=== PATIENT | female | born 1980 | race Caucasian/White ===

== ENCOUNTER 2016-09-08 10:48 | Observation (INO) | payer BC ==
[~2016-09-08] VITALS: Ht 170.2 cm; Wt 81.8 kg
[2016-09-08] MEDS ORDERED: BENADRYL25 MG PO (11:33)
[2016-09-08] MEDS ORDERED: PRENATAL 1+1)(P1 TAB PO (11:33)
[2016-09-08] MEDS ORDERED: PROBIOTIC1 EAC1 PO (11:34)
[2016-09-08 12:15] LABS: BASOPHIL % 0.3 %; EOSINOPHIL # 0.1 K/uL (0.0-0.5); EOSINOPHIL % 0.7 %; HEMATOCRIT 34.1 % (33.0-46.0); HEMOGLOBIN 11.5 g/dL (11.0-15.0); IMMATURE GRANULOCYTE # 0.1 K/uL (0.0-0.3); IMMATURE GRANULOCYTE % 0.9 %; LYMPHOCYTE # 1.6 K/uL (0.8-4.0); LYMPHOCYTE % 13.3 %; MCH 28.8 pg (27.0-34.0); MCHC 33.7 gm/dL (32.0-36.5); MCV 85.3 fl (83.0-98.0); MONOCYTE # 0.7 K/uL (0.0-1.0); MONOCYTE % 6.1 %; MPV 10.6 fl (9.4-12.4); NEUTROPHIL # (ANC) 9.2 K/uL (1.8-7.8); NEUTROPHIL % 78.7 %; NRBC % 0 /100WBC (0-0.00); PLATELET COUNT 244 K/uL (150-450); RDW-CV 12.4 % (11.9-14.6); WBC 11.7 K/uL (4.0-11.0)
[2016-09-08 12:23] LABS: PROTIME 10.4 SECONDS (9.6-11.1); PTT 24 SECONDS (25-32)
[2016-09-08 12:30] LABS: ALBUMIN 2.5 gm/dL (3.5-5.0); ALK PHOS 132 IU/L (33-138); ALT 20 IU/L (12-78); ANION GAP 15.7 (10.0-19.0); AST 16 IU/L (10-40); BLOOD UREA NITROGEN 6 mg/dL (6-24); CALCIUM 8.5 mg/dL (8.5-10.5); CHLORIDE 110 mMol/L (96-110); CO2 21 mMol/L (22-32); CREATININE 0.5 mg/dL (0.5-1.1); ESTIMATED GFR (MDRD EQUATION) > 60; POTASSIUM 3.7 mMol/L (3.7-5.1); SODIUM 143 mMol/L (135-145); TOTAL BILIRUBIN 0.3 mg/dL (0.0-1.5); TOTAL PROTEIN 6.4 g/dL (6.0-8.4)
== END 2016-09-08 14:00 | disposition disaster alternative care site (69) ==
LOC: GOBS 10:48
PROVIDERS: ADMIT Obstetrics & Gynecology
DX: O13.3 Gestational [pregnancy-induced] hypertension without significant proteinuria, third trimester (principal); Z3A.31 31 weeks gestation of pregnancy
CPT/HCPCS: G0463